=== PATIENT | male | born 2000 | race Caucasian/White ===

== ENCOUNTER 2019-07-06 16:07 | Emergency (ER) | payer OTHER ==
[2019-07-06] MEDS ORDERED: Ondansetron ODT TAB* 4 MG PO ONE (16:30)
[2019-07-06 18:12] LABS: ABS Lymphocytes 0.2 10^3/ul (1.0-4.8); ABS Monocytes 0.6 10^3/ul (0-0.8); ABS Neutrophils 12.1 10^3/ul (1.5-7.7); Eosinophil % 0.1 %; Hematocrit 49 % (42-52); Hemoglobin 17.1 g/dL (14.0-18.0); Lymphocyte % 1.4 %; Mean Corpuscular HGB Conc 35 g/dL (31-36); Mean Corpuscular Hemoglobin 31 pg (27-31); Mean Corpuscular Volume 90 fL (80-94); Mean Platelet Volume 7.8 fL (7.4-10.4); Platelet Count 207 10^3/uL (150-450); Red Blood Count 5.44 10^6 /uL (4.18-5.48); Red Cell Distribution Width 12 % (10-15); White Blood Count 12.9 10^3/uL (3.5-10.8)
[2019-07-06 18:36] LABS: Albumin 5.2 g/dL (3.2-5.2); Calcium 10.1 mg/dL (8.6-10.3); Magnesium 1.8 mg/dL (1.9-2.7); Potassium 4.5 mmol/L (3.5-5.0); Total Bilirubin 0.9 mg/dL (0.2-1.0)
[2019-07-06] MEDS ORDERED: NS 0.9% 1000 ML** 1,000 ML IV ONE ×2 (18:39→19:21)
[2019-07-06 18:42] LABS: Albumin/Globulin Ratio 1.9 (1-3); BUN/Creatinine Ratio 17.3 (8-20); C Reactive Protein 4.78 mg/L (<8.01); EGFR African American 102.2 (>60); EGFR Non-African American 84.5 (>60); Globulin 2.8 g/dL (2-4)
[2019-07-06] MEDS ORDERED: Ondansetron INJ* 2 MG/ML VIAL IV ONE (18:53)
[2019-07-06] MEDS ORDERED: Pantoprazole IV* 40 MG IV ONE (18:53)
[2019-07-06] MEDS ORDERED: Ketorolac INJ* 30 MG/ML 1 ML VIAL IV PUSH ONE (18:53)
--- NOTE | 2019-07-06 19:18 | ED ---
GI/ HPI - HPI Summary HPI Summary: 19-year-old male presents with nausea vomiting abdominal pain since this morning. He states that he has not been eating much for the past couple days and has been drinking etoh instead. He states that he had 8 glass of alcohol last night. He states that h did not eat anything this morning. He did take his antidepressants. He states he stood up and started to vomit. He states that he has generalized abdominal pain. He states he started vomiting of bile and then became blood tinged. He was given nausea meds in the waiting room which seemed to help. He states he had a couple episodes of diarrhea. No recent travel. Has not been on antibiotics recently. Did not eat anything different. Has history depression. - History of Current Complaint Chief Complaint: EDNauseaVomitDiarrh Time Seen by Provider: 07/06/19 18:39 Stated Complaint: VOMITING/DIARRHEA AND ADB PAIN PER PT Pain Intensity: 3 - Allergy/Home Medications Allergies/Adverse Reactions: Allergies Allergy/AdvReac Type Severity Reaction Status Date / Time No Known Allergies Allergy Verified 07/06/19 19:52 PMH/Surg Hx/FS Hx/Imm Hx Endocrine/Hematology History: Denies: Hx Anticoagulant Therapy Respiratory History: Denies: Hx Asthma Infectious Disease History: No Infectious Disease History: Denies: Traveled Outside the [place] in Last 30 Days - Family History Known Family History: Positive: Non-Contributory - Social History Alcohol Use: Weekly Substance Use Type: Reports: Marijuana Smoking Status (MU): Former Smoker Review of Systems Negative: Fever Negative: Chest Pain Negative: Shortness Of Breath Positive: Abdominal Pain, Vomiting, Diarrhea, Nausea All Other Systems Reviewed And Are Negative: Yes Physical Exam Triage Information Reviewed: Yes Vital Signs On Initial Exam: Initial Vitals Temp Pulse Resp BP Pulse Ox 97.2 F 118 18 126/89 97 07/06/19 16:28 07/06/19 16:28 07/06/19 16:28 07/06/19 16:28 07/06/19 16:28 Vital Signs Reviewed: Yes Appearance: Positive: Well-Appearing Skin: Positive: Warm, Dry Head/Face: Positive: Normal Head/Face Inspection Eyes: Positive: Normal, EOMI, JULIA, Conjunctiva Clear ENT: Positive: Pharynx normal, TMs normal Respiratory/Lung Sounds: Positive: Clear to Auscultation, Breath Sounds Present Cardiovascular: Positive: Normal, RRR Abdomen Description: Positive: Soft, Other: - diffuse abd tenderness Bowel Sounds: Positive: Present Musculoskeletal: Positive: Normal Neurological: Positive: Normal Psychiatric: Positive: Normal Procedures - Sedation Patient Received Moderate/Deep Sedation with Procedure: No Diagnostics - Vital Signs Vital Signs Temp Pulse Resp BP Pulse Ox 07/06/19 19:00 71 100 07/06/19 18:50 80 100 07/06/19 18:48 123/72 07/06/19 18:26 100.3 F 84 14 99/55 100 07/06/19 16:28 97.2 F 118 18 126/89 97 - Laboratory Lab Results: Lab Results 07/06/19 07/06/19 07/06/19 Range/Units 18:01 18:01 18:01 WBC 12.9 H (3.5-10.8) 10^3/uL RBC 5.44 (4.18-5.48) 10^6 /uL Hgb 17.1 (14.0-18.0) g/dL Hct 49 (42-52) % MCV 90 (80-94) fL MCH 31 (27-31) pg MCHC 35 (31-36) g/dL RDW 12 (10-15) % Plt Count 207 (150-450) 10^3/uL MPV 7.8 (7.4-10.4) fL Neut % (Auto) 93.4 % Lymph % (Auto) 1.4 % Park % (Auto) 5.0 % Eos % (Auto) 0.1 % Baso % (Auto) 0.1 % Absolute Neuts (auto) 12.1 H (1.5-7.7) 10^3/ul Absolute Lymphs (auto) 0.2 L (1.0-4.8) 10^3/ul Absolute Monos (auto) 0.6 (0-0.8) 10^3/ul Absolute Eos (auto) 0.0 (0-0.6) 10^3/ul Absolute Basos (auto) 0.0 (0-0.2) 10^3/ul Absolute Nucleated RBC 0.0 10^3/ul Nucleated RBC % 0.0 Sodium 137 (135-145) mmol/L Potassium 4.5 (3.5-5.0) mmol/L Chloride 104 (101-111) mmol/L Carbon Dioxide 24 (22-32) mmol/L Anion Gap 9 (2-11) mmol/L BUN 19 (6-24) mg/dL Creatinine 1.10 (0.67-1.17) mg/dL Est GFR ( Amer) 102.2 (>60) Est GFR (Non-Af Amer) 84.5 (>60) BUN/Creatinine Ratio 17.3 (8-20) Glucose 97 (70-100) mg/dL Lactic Acid 1.5 (0.5-2.0) mmol/L Calcium 10.1 (8.6-10.3) mg/dL Magnesium 1.8 L (1.9-2.7) mg/dL Total Bilirubin 0.90 (0.2-1.0) mg/dL AST 24 (13-39) U/L ALT 13 (7-52) U/L Alkaline Phosphatase 89 (34-104) U/L C-Reactive Protein 4.78 (<8.01) mg/L Total Protein 8.0 (6.4-8.9) g/dL Albumin 5.2 (3.2-5.2) g/dL Globulin 2.8 (2-4) g/dL Albumin/Globulin Ratio 1.9 (1-3) Lipase 13 (11.0-82.0) U/L Result Diagrams: 07/06/19 18:01 07/06/19 18:01 Lab Statement: Any lab studies that have been ordered have been reviewed, and results considered in the medical decision making process. Re-Evaluation - Re-Evaluation First Eval Re-Evaluation Time: 19:22 Change: Improved Comment: feeling better, not ready to drink anything Second Eval Re-Evaluation Time: 20:34 Change: Improved Comment: tolerate fluids in ED GIGU Course/Dx - Course Course Of Treatment: 19-year-old male presents with nausea vomiting abdominal pain since this morning. He states that he has not been eating much for the past couple days and has been drinking etoh instead. He states that he had 8 glass of alcohol last night. He states that h did not eat anything this morning. He did take his antidepressants. He states he stood up and started to vomit. He states that he has generalized abdominal pain. He states he started vomiting of bile and then became blood tinged. He was given nausea meds in the waiting room which seemed to help. He states he had a couple episodes of diarrhea. No recent travel. Has not been on antibiotics recently. Did not eat anything different. Has history depression. On exam tenderness greatest in left upper quadrant. wbc 12. electrolytes only abnormality is magnesium 1.8 which gave supplement. Gave fluids protonic Toradol and Zofran and was able to tolerate fluids in the ED. With drinking ETOH and not eating anything we'll place on a course of omeprazole as likely has a gastritis. Give Zofran as needed for nausea. Patient understands and agrees plan. - Diagnoses Differential Diagnoses - Male: Gastritis, Gastroenteritis (Bacterial), Gastroenteritis (Viral) Provider Diagnoses: Vomiting Discharge ED - Sign-Out/Discharge Documenting (check all that apply): Patient Departure - Discharge Plan Condition: Good Disposition: HOME Prescriptions: Omeprazole 20 mg PO DAILY #13 capsule. Ondansetron ODT TAB* [Zofran 4 MG Odt TAB*] 4 mg PO Q6H PRN #16 tab.odt PRN Reason: Nausea Patient Education Materials: Acute Nausea and Vomiting (ED) Referrals: No Primary Care Phys,NOPCP [Primary Care Provider] - Additional Instructions: Can take Zofran every 6 hours as needed for nausea take omeprazole daily Drink small amounts of fluid as tolerated When able to eat follow BRAT diet: Bananas, rice, applesauce, toast Take Tylenol for pain as needed every 6 hours Follow up with primary within 5 days Return to ED if develop any new or worsening symptoms - Billing Disposition and Condition Condition: GOOD Disposition: Home - Attestation Statements Provider Attestation: I was available for consultation for this patient. I did not evaluate the patient or participate in any medical decision making or disposition decisions unless I am specifically named in the chart as having consulted on the patient. If I have consulted on the patient, please see my own ED note on the patient encounter. Kishan Bhardwaj MD
[2019-07-06] MEDS ORDERED: Magnesium Chloride EC TAB* 64 MG PO ONE (19:21)
[2019-07-06 20:28] VITALS: BP 123/60
[2019-07-06] MEDS ORDERED: O ndansetron ODT 4MG 5TAB PRPK 4 MG PAK PO ONE (20:28)
== END 2019-07-06 20:30 | disposition home or self-care (01) ==
LOC: ED 16:07
DX: R11.10 Vomiting, unspecified (principal); Z87.891 Personal history of nicotine dependence; Z79.899 Other long term (current) drug therapy
CPT/HCPCS: 36415; 80053; 83605; 83690; 83735; 85025; 86140; 96361; 96374; 96375; 99284; A9270-GY; J1885; J2405